=== PATIENT | female | born 1945 ===

== ENCOUNTER 2021-09-27 12:44 | Emergency (ER) | payer OTHER ==
[~2021-09-27] VITALS: Ht 160 cm; Wt 65.8 kg
[2021-09-27] MEDS ORDERED: NORVASC5 MG (13:06)
[2021-09-27] MEDS ORDERED: ZOLOFT25 MG (13:07)
[2021-09-27] MEDS ORDERED: LIPITOR20 MG (13:07)
[2021-09-27] MEDS ORDERED: TENORMIN25 MG (13:07)
[2021-09-27] MEDS ORDERED: GRALISE600 MG (13:07)
[2021-09-27] MEDS ORDERED: BUSPIRONE HCL5 MG (13:08)
[2021-09-27] MEDS ORDERED: ULTRACET PO ×2 (14:08)
[2021-09-27] MEDS ORDERED: AMBIEN10 MG PO ×2 (14:08)
[2021-09-27] MEDS ORDERED: WHEELCHAIR ×2 (14:10)
== END 2021-09-27 17:20 | disposition home or self-care (01) ==
LOC: ER 12:44
DX: S82.62XA Displaced fracture of lateral malleolus of left fibula, initial encounter for closed fracture (principal); S93.05XA Dislocation of left ankle joint, initial encounter; W18.09XA Striking against other object with subsequent fall, initial encounter; Y93.89 Activity, other specified; Y92.018 Other place in single-family (private) house as the place of occurrence of the external cause; Y99.8 Other external cause status; Z01.810 Encounter for preprocedural cardiovascular examination; Z01.812 Encounter for preprocedural laboratory examination; Z11.52 Encounter for screening for COVID-19

== ENCOUNTER 2021-09-30 11:02 | Day surgery (SDC) | payer OTHER ==
[~2021-09-30 11:02] MED LIST: AMBIEN10 MG PO; BUSPIRONE HCL5 MG; GRALISE600 MG; LIPITOR20 MG; NORVASC5 MG; TENORMIN25 MG; ULTRACET PO; WHEELCHAIR; ZOLOFT25 MG
[2021-09-30] MEDS ORDERED: ASA325 M1 PO ×2 (16:11)
[2021-09-30] MEDS ORDERED: DUI500 PO ×2 (16:11)
[2021-09-30] MEDS ORDERED: PERCOCET 5-3251 EACH PO ×2 (16:11)
== END 2021-09-30 18:30 | disposition home or self-care (01) ==
LOC: CIR.AMB 11:02
PROVIDERS: ATTEND Orthopaedic Surgery
DX: S82.842A Displaced bimalleolar fracture of left lower leg, initial encounter for closed fracture (principal); S93.422A Sprain of deltoid ligament of left ankle, initial encounter
CPT/HCPCS: 27814; 27695; C1776